=== PATIENT | male | born 1990 | race Caucasian/White ===

== ENCOUNTER 2017-07-31 23:53 | Emergency (ER) | payer SELFPAY ==
[~2017-07-31] VITALS: Ht 170.2 cm; Wt 94.0 kg
[2017-08-01] MEDS ORDERED: IBUPROFEN 600MG TABLET PO STA (00:23)
[2017-08-01 00:28] VITALS: BP 152/93
== END 2017-08-01 02:00 | disposition home or self-care (01) ==
LOC: ER 08-01 00:13
DX: M54.5 Low back pain (principal); R07.9 Chest pain, unspecified; F17.200 Nicotine dependence, unspecified, uncomplicated; Z91.010 Allergy to peanuts; V43.62XA Car passenger injured in collision with other type car in traffic accident, initial encounter; Y93.89 Activity, other specified; Y92.89 Other specified places as the place of occurrence of the external cause; Y99.8 Other external cause status
CPT/HCPCS: 71045; 72170; 99284